=== PATIENT | male | born 1975 | race Caucasian/White ===

== ENCOUNTER 2017-03-18 09:06 | Emergency (ER) | payer MEDICAID ==
[~2017-03-18] VITALS: Ht 170.2 cm; Wt 83.0 kg
[2017-03-18 09:13] VITALS: BP 128/80
[2017-03-18] MEDS ORDERED: FLUORESCEIN OPHTHALMIC 1 MG STRIP ONE (09:36)
[2017-03-18] MEDS ORDERED: PROPARACAINE OPHTH 0.5%, 15ML ONE ×2 (09:36→09:37)
[2017-03-18] MEDS ORDERED: FLUORESCEIN OPHTHALMIC 1 MG STRIP EACHEYE ONE (10:00)
[2017-03-18] MEDS ORDERED: PROPARACAINE OPHTH 0.5%, 15ML EACHEYE ONE (10:00)
== END 2017-03-18 10:40 | disposition home or self-care (01) ==
LOC: ED 09:57
DX: S05.02XA Injury of conjunctiva and corneal abrasion without foreign body, left eye, initial encounter (principal); X58.XXXA Exposure to other specified factors, initial encounter; Y93.89 Activity, other specified; Y92.89 Other specified places as the place of occurrence of the external cause; Y99.9 Unspecified external cause status
CPT/HCPCS: 99283